=== PATIENT | female | born 1945 | race Caucasian/White ===

== ENCOUNTER 2024-02-15 10:04 | Emergency (ER) | payer MEDICARE, SELFPAY ==
[2024-02-15 10:11] VITALS: BP 146/73; PULSE 79; RESP 16; TEMP 37; O2SAT 96
--- NOTE | 2024-02-15 10:14 | PC.NURSE ---
in br to obtain ua spec.
[2024-02-15 10:34] VITALS: BP 146/73; PULSE 79; RESP 16; TEMP 37; O2SAT 96
--- NOTE | 2024-02-15 10:45 | ED.GENADULT ---
HPI - General Adult General Chief complaint: Urogenital-Female Stated complaint: Right Ear Pain/Urinary Problem Time Seen by Provider: 02/15/24 10:32 Source: patient, RN notes reviewed and old records reviewed Mode of arrival: ambulatory Limitations: no limitations History of Present Illness HPI narrative: 78-year-old female presents to [facility] with complaint of decreased urine output, dysuria, nocturia, malodorous urine, supra pubic pressure for 2 weeks. Patient denies nausea, vomiting, fever. Patient has attempted to treat at home with cranberry juice without relief. Patient also endorsing right ear pain with intermittent dizziness for 1 month. Patient states she was seen by her primary care provider 1 month ago and advised she had excessive cerumen in right ear. Patient states she treated at home with peroxide and symptoms became worse after treatment. patient denies pertinent medical history. No signs of distress upon arrival. Related Data Home Medications Medication Instructions Recorded Confirmed Calcium 600 + D(3) 02/15/24 Imitrex 02/15/24 albuterol sulfate 2.5 mg/3 mL mg 02/15/24 (0.083 %) solution for nebulization ascorbic acid (vitamin C) 500 mg 500 mg PO DAILY 02/15/24 02/15/24 tablet azithromycin 500 mg tablet mg 02/15/24 ethambutol 400 mg tablet 02/15/24 furosemide 40 mg tablet mg 02/15/24 rifampin 300 mg capsule mg 02/15/24 sertraline 50 mg tablet mg 02/15/24 telmisartan 40 tablet 02/15/24 mg-hydrochlorothiazide 12.5 mg tablet zolpidem 5 mg tablet mg 02/15/24 Allergies Allergy/AdvReac Type Severity Reaction Status Date / Time No Known Allergies Allergy Unknown Unverified 02/15/24 10:09 Review of Systems Review of Systems: All systems reviewed & are unremarkable except as noted in HPI and below Constitutional: Constitutional: Reports no additional constitutional complaints, Denies chills, Denies fatigue, Denies fever(s) and Denies headache(s) Eyes: Eyes: Reports no additional eye complaints ENT: Reports as per HPI, Reports otalgia (right), Denies nasal congestion and Denies sore throat Cardiovascular: Cardiovascular: Reports no additional cardiovascular complaints, Denies chest pain and Denies dyspnea Respiratory: Respiratory: Reports no additional respiratory complaints, Denies cough and Denies dyspnea Gastrointestinal: Gastrointestinal: Reports other ( suprapubic pressure) Genitourinary: Genitourinary: Reports as per HPI, Reports nocturia, Reports dysuria, Reports urinary hesitancy, Reports urinary urgency and Reports other ( malodorous urine) Musculoskeletal: Musculoskeletal: Reports no additional musculoskeletal complaints Neurologic: Reports system reviewed and no additional complaints, except as documented Psychiatric: Psychiatric: Reports no additional psychiatric complaints PMFSH Comments At the time of my signature, I reviewed and agree with the nursing past medical, surgical, social, and family history. There is no relevant family history pertinent to the patient complaint. Exam Const: General: cooperative, healthy appearing, comfortable, no acute distress, alert and well nourished Nutritional Appearance: well nourished Orientation/consciousness: patient oriented x3 Limitations: no limitations HENMT: Head: normal to inspection Ears: external ears normal, TM normal on the left and TM abnormal with fluid behind the TM on the right and diffuse Face/Nose/Sinus: Normal external nose present, Normal nares present, normal facial exam, No erythema and No edema Face and sinus: normal facial exam, no erythema and no edema Mouth: Yes Normal oral and palatal mucosa present Eyes: General: appearance normal, both eyes and all related structures Neck: Neck: normal visual inspection, full ROM and no meningeal signs Lymphatic: no lymphadenopathy noted and no lymphedema noted Chest: Chest palpation & inspection: normal inspection of the chest Resp: Effor
== END 2024-02-15 10:52 | disposition home or self-care (01) ==
PROVIDERS: Emergency Provider Nurse Practitioner Family; PCP Nurse Practitioner Family
DX: N30.00 Acute cystitis without hematuria (principal); H65.01 Acute serous otitis media, right ear; Z79.899 Other long term (current) drug therapy
CPT/HCPCS: 81003; 87086; 99203; G0463